=== PATIENT | female | born 1985 | race Caucasian/White ===

== ENCOUNTER → 2023-01-21 14:55 | Outpatient (CLI) | payer BC, SELFPAY ==
--- NOTE | 2023-01-21 14:59 | US_ITS ---
FINAL REPORT TECHNIQUE: Ultrasound images of the kidneys and bladder were obtained. CLINICAL HISTORY: HEMATURIA COMPARISON: None FINDINGS: The right kidney measures 11.9 cm in length. It is normal in echogenicity. There is no hydronephrosis. The left kidney has been surgically resected. IMPRESSION: Unremarkable right renal ultrasound. Left kidney has been surgically resected. Reviewed, Interpreted and Dictated by Ambar Maldonado MD Transcribed by Zoe Douglass Authenticated and . [facility]
== END ==
PROVIDERS: PCP Nurse Practitioner Family; Visit Provider Nurse Practitioner Family
DX: R31.9 Hematuria, unspecified (principal)
CPT/HCPCS: 76770

== ENCOUNTER 2023-04-09 22:31 | Emergency (ER) | payer BC, SELFPAY ==
[2023-04-09 22:32] VITALS: BP 127/93; PULSE 58; RESP 16; TEMP 36.7; O2SAT 98; BMI 25.1
[2023-04-09 22:45] VITALS: BP 127/93; PULSE 55; O2SAT 100
[2023-04-09 23:00] VITALS: BP 113/79; PULSE 52; O2SAT 97
--- NOTE | 2023-04-09 23:08 | CT_ITS ---
PROCEDURE INFORMATION: Exam: CT Head Without Contrast Exam date and time: 04/09/2023 11:23 PM Age: 38 years old Clinical indication: Pain; Headache; Additional info: Headache for 1 week TECHNIQUE: Imaging protocol: Computed tomography of the head without contrast. Radiation optimization: All CT scans at this facility use at least one of these dose optimization techniques: automated exposure control; mA and/or kV adjustment per patient size (includes targeted exams where dose is matched to clinical indication); or iterative reconstruction. REPORTING DATA: Count of CT and Cardiac NM exams in prior 12 months: This patient has received 0 known CTs and 0 known cardiac nuclear medicine studies in the 12 months prior to the current study. COMPARISON: No relevant prior studies available. FINDINGS: Brain: Normal. No hemorrhage. Unremarkable white matter. No mass effect. Cerebral ventricles: No ventriculomegaly. Paranasal sinuses: Visualized sinuses are unremarkable. No fluid levels. Mastoid air cells: Visualized mastoid air cells are well aerated. Bones/joints: Unremarkable. No acute fracture. Soft tissues: Unremarkable. IMPRESSION: No acute intracranial abnormality.
--- NOTE | 2023-04-09 23:10 | HMH.EDGENADL ---
Discharge Plan Disposition Chief Complaint: Headache Prescriptions Prescriptions: No Action No Known Home Medications Referrals Follow up/Referrals: Jasvir Rose APRN [Primary Care Provider] - See instructions Clinical Impressions Clinical Impression: Headache Instructions Patient Instructions: DI for Headache Discharge ED Provider: Mounika Buck General Adult HPI General Chief complaint: Headache Stated complaint: stiff neck, headache Time Seen by Provider: 04/09/23 23:00 Mode of Arrival: Ambulatory Source of Information: Patient Limitations: No Limitations Description of Symptoms (Recalled from ER Triage Doc. by RN): pt c/o ALEXANDRE and neck pain since wednesday. pt has been on antibodics recently for sinus History of Present Illness HPI narrative: Patient has a PMHx significant for kidney donation who presents to the ED with complaints of headache. Patient notes that 2 weeks ago and up until last , she was experiencing flulike symptoms of fatigue, body aches, malaise, headaches. Since Wednesday, patient notes that she has been having constant headache and neck stiffness that has not resolved despite taking Tylenol. Patient notes that she cannot take NSAIDs given only isolated kidney. Patient describes the headache as a frontal pressure sensation. Patient decided come into the ED after 5 days of symptoms. No fevers, chills, altered mental status, focal neurological deficit Related Data Home Medications Medication Instructions Recorded Confirmed No Known Home Medications 04/09/23 04/09/23 Allergies Allergy/AdvReac Type Severity Reaction Status Date / Time No Known Allergies [facility]ergy Verified 04/09/23 22:45 [facility] Disclaimer: The information contained in this section may have been updated after the patient was seen, as this information can be updated by other users. Social History Smoking Status: Never smoker alcohol intake: never current occupational status: employed Travel in the last 8 weeks: None ROS Obtained: Yes All systems reviewed & no additional complaints except as documented Physical Exam General General appearance: alert and in no apparent distress Head Head exam: atraumatic, normocephalic and normal inspection Eye Eye exam: Present normal appearance, PERRL and EOMI; Absent scleral icterus or nystagmus ENT ENT exam: Present normal exam, mucous membranes moist and normal external ear exam Neck Neck exam: Present normal inspection, full ROM and trachea midline Chest Chest inspection: Present normal inspection and symmetric chest wall rise; Absent tenderness Respiratory Respiratory exam: Present normal lung sounds bilaterally; Absent respiratory distress, wheezes or accessory muscle use Cardiovascular Cardiovascular exam: Present regular rate, normal rhythm and normal heart sounds Abdominal Exam Abdominal exam: Present soft; Absent distention, tenderness, guarding, rebound, rigidity, trauma, ascites or pulsatile mass Extremities Exam Extremities exam: Present normal inspection and full ROM; Absent tenderness Back Exam Back exam: Present normal inspection and full ROM; Absent tenderness Neurological Exam Neurological exam: Present alert, oriented X3 and normal gait; Absent motor sensory deficit Psychiatric Psychiatric exam: Present normal affect and normal mood Skin Skin exam: Present warm, dry and normal color Medical Decision Making Medical Records Medical records reviewed: Yes I reviewed the patient's medical records. Vitaly Inquiry Pt receiving controlled substance: No Vital Signs: 04/09/23 22:32 04/09/23 22:45 04/09/23 23:00 Temperature 98.0 F Temperature Source Oral Pulse Rate 55 L 52 L Pulse Rate [Right] 58 L Respiratory Rate 16 Blood Pressure 127/93 H 113/79 Blood Pressure [Right Arm] 127/93 H Blood Pressure Mean [Right Arm] 104 02 Sat by Pulse Oximetry 98 100 97 04/09/23 23:30 Temperature Temperature S
[2023-04-09 23:16] LABS: Basophils # 0.1 K/mm3 (0-0.2); Basophils % 0.9 % (0.1-2.0); Eosinophils # 0.1 K/mm3 (0.0-0.4); Eosinophils % 1.7 % (0.1-12.0); Hematocrit 42.7 % (37.0-47.0); Hemoglobin 14.1 g/dL (12.2-16.2); Lymphocytes # 3.5 K/mm3 (0.7-4.5); Lymphocytes % 51.3 % (10-50); Mean Corpuscular Hemoglobin 30.9 pg (27.0-31.2); Mean Corpuscular Volume 93.4 fl (81-99); Mean Platelet Volume 8.1 fl (7.4-10.4); Monocytes # 0.3 K/mm3 (0.1-1.0); Monocytes % 4.2 % (1.7-9.3); Neutrophils # 2.8 K/mm3 (1.8-7.8); Neutrophils % 41.8 % (37.0-80.0); Platelet Count 274 K/mm3 (142-424); Red Blood Count 4.57 M/mm3 (4.20-5.40); Red Cell Distribution Width 12.2 % (11.5-17.5); White Blood Count 6.7 K/mm3 (4.8-10.8)
[2023-04-09 23:18] LABS: MANUAL DIFFERENTIAL MANUAL DIFFERENTIAL (MANUAL DIFF)
[2023-04-09 23:20] LABS: Anion Gap 9.7 mEq/L (5-15); Blood Urea Nitrogen 8 mg/dl (7-17); Calcium 8.9 mg/dl (8.4-10.2); Carbon Dioxide 29 mmol/L (22.0-30.0); Chloride 102 mmol/L (98-107); Creatinine Clearance Estimated 92 mL/min (50-200); Estimated Glomerular Filt Rate 62 ml/min (>60); GFR (African American) 75 ML/MIN (>60); Glucose 87 mg/dl (74-100); Potassium 3.7 mmoL/L (3.5-5.1); Sodium 137 mmol/L (136-145)
--- NOTE | 2023-04-09 23:20 | PC.NURSE ---
patient gone to CT at this time.
[2023-04-09 23:30] VITALS: BP 127/77; PULSE 74; O2SAT 100
[2023-04-10 00:09] LABS: Eosinophils % 2 % (0-3); Lymphocytes % 51 % (10-50); Monocytes % 3 % (2-9); Neutrophils % 44 % (42-76); Platelet Estimate Normal; RBC Morphology Normal; Total Cells Counted 100
--- NOTE | 2023-04-10 00:11 | PC.NURSE ---
in room talking with patient at this time.
[2023-04-10 00:41] VITALS: BP 124/72; PULSE 74; RESP 16; TEMP 36.6; O2SAT 99
== END 2023-04-10 00:47 | disposition home or self-care (01) ==
PROVIDERS: Emergency Provider Emergency Medicine; PCP Nurse Practitioner Family
DX: R51.9 Headache, unspecified (principal); R53.83 Other fatigue
CPT/HCPCS: 70450; 80048; 85007; 85025; 96361; 96374; 96375; 99285

== ENCOUNTER 2023-04-22 09:16 | Emergency (ER) | payer BC, SELFPAY ==
--- NOTE | 2023-04-22 10:05 | EXP.UTC ---
Discharge Plan Disposition Patient Disposition: Home, Self-Care Condition: Good Prescriptions Prescriptions: New doxycycline monohydrate [doxycycline monohydrate] 100 mg tablet 100 mg PO Q12 10 Days Qty: 20 0RF methylprednisolone 4 mg Tablets,Dose Pack 4 mg PO DIRECTED Qty: 21 0RF [id number]-[id number]-KV [Bromfed DM] 2-30-10 mg/5 mL Syrup 5 ml PO Q6H PRN (Reason: Cough) Qty: 240 0RF fluconazole 150 mg tablet 150 mg PO ONCE Qty: 1 2RF No Action sertraline 100 mg tablet 200 mg PO DAILY Patient Comments: TAKE 2 TABLETS BY MOUTH DAILY pantoprazole 40 mg tablet,delayed release (DR/EC) 40 mg PO DAILY Patient Comments: TAKE 1 TABLET BY MOUTH DAILY Referrals Follow up/Referrals: Jasvir Rose APRN [Primary Care Provider] - See instructions Activity Restrictions/Add. Instructions Additional Instructions/Restrictions: Drink plenty of fluids. Take tylenol or ibuprofen for pain or fever. Take the medications as directed. Follow up with your regular doctor. GO TO THE ER FOR ANY WORSENING SYMPTOMS Clinical Impressions Clinical Impression: Acute viral syndrome, Bronchitis Instructions Patient Instructions: Acute Bronchitis, DI for Acute Bronchitis Discharge ED Provider: Austen Melissa [facility] General Stated complaint: cough,congestion,sore throat,fever Time Seen by Provider: 04/22/23 10:05 History of Present Illness Provider Complaint: She states that she was diagnosed with influenza B around 2 weeks ago. She states that she originally got better from that, but then her symptoms returned and she has continued to feel bad for the past 1 week. She is having congestion, malaise, low grade fever. Related Data Home Medications Medication Instructions Recorded Confirmed pantoprazole 40 mg tablet,delayed 40 mg PO DAILY 04/22/23 04/22/23 release sertraline 100 mg tablet 200 mg PO DAILY 04/22/23 04/22/23 Previous Rx's Medication Instructions Recorded mvfzqodxznrawlq-jolqvieowpgdsbw-DZ 5 ml PO Q6H PRN Cough #240 mL 04/22/23 2 mg-30 mg-10 mg/5 mL oral syrup (Bromfed DM) doxycycline monohydrate 100 mg 100 mg PO Q12 10 days #20 tabs 04/22/23 tablet fluconazole 150 mg tablet 150 mg PO ONCE #1 tab 12/21/23 methylprednisolone 4 mg tablets in 4 mg PO DIRECTED #21 tabs 04/22/23 a dose pack Allergies Allergy/AdvReac Type Severity Reaction Status Date / Time No Known Allergies Allergy Verified 04/09/23 22:45 [facility] Disclaimer: The information contained in this section may have been updated after the patient was seen, as this information can be updated by other users. Medical History (Updated 04/22/23 @ 11:14 by Austen Melissa APRN) Anxiety Depression History of gastroesophageal reflux (GERD) Hyperlipidemia Kidney donor Kidney stone Urinary tract infection Surgical History (Updated 04/22/23 @ 10:28 by Darling Prather RN) History of section History of hysterectomy History of tonsillectomy History of tubal ligation History of tympanostomy tube placement Social History (Updated 04/10/23 @ 00:37 by Mounika Buck MD) Smoking Status: Never smoker alcohol intake: never current occupational status: employed Travel in the last 8 weeks: None ROS Obtained: Yes All systems reviewed & no additional complaints except as documented Constitutional Constitutional: Reports chills and Reports fever(s) Eyes Eyes: Denies eye discharge ENT Ears, Nose, Mouth, and Throat: Reports as per HPI Cardiovascular Cardiovascular: Denies chest pain Respiratory Respiratory: Denies chest congestion and Reports cough Gastrointestinal Gastrointestingal: Reports nausea; Denies abdominal pain, constipation, cramping, diarrhea or vomiting Musculoskeletal Musculoskeletal: Denies arthralgias Integumentary/Breasts Skin/Breast: Denies rash Neurologic Neurologic: Denies paresthesias Physical Exam General General
[2023-04-22 10:10] VITALS: BP 122/76; PULSE 89; RESP 20; TEMP 37.3; O2SAT 96; BMI 24.5
[2023-04-22 10:23] LABS: UTC Influenza A Antigen Negative (Negative); UTC Strep Screen (Rapid) Negative (Negative)
[2023-04-22 10:24] LABS: UTC Influenza B Antigen Positive (Negative)
--- NOTE | 2023-04-22 10:30 | XR_ITS ---
FINAL REPORT TECHNIQUE: Chest PA & Lateral CLINICAL HISTORY: cough, congestion COMPARISON: None FINDINGS: 2 views of the chest were performed. The heart size is normal. The mediastinum is within normal limits. There is no acute cardiopulmonary process. There are no pleural effusions. There is no pneumothorax. The bony thorax appears intact. There is 12 degrees of thoracic scoliosis convex to the right. IMPRESSION: No acute cardiopulmonary process. Reviewed, Interpreted and Dictated by Jeremi Brown MD Transcribed by Maria Antonia Bello Authenticated and [facility]
[2023-04-22 10:53] VITALS: BP 122/76; PULSE 89; RESP 20; TEMP 37.3; O2SAT 96
[2023-04-22 11:27] LABS: Adenovirus,PCR Not Detected (NotDetected); Bordetella Pertussis Not Detected (NotDetected); Chlamydophila Pneumoniae, PCR Not Detected (NotDetected); Coronavirus 19, PCR Not Detected (NotDetected); Coronavirus 229E Not Detected (NotDetected); Coronavirus NL63 Not Detected (NotDetected); Coronavirus OC43 Not Detected (NotDetected); Coronovirus HKU1,PCR Not Detected (NotDetected); Human Metapneumovirus Not Detected (NotDetected); Influenza A, PCR Not Detected (NotDetected); Influenza AH1, 2009 Not Detected (NotDetected); Influenza AH1, PCR Not Detected (NotDetected); Influenza AH3,PCR Not Detected (NotDetected); Mycoplasma Pneumoniae, PCR Not Detected (NotDetected); Parainfluenza 1, PCR Not Detected (NotDetected); Parainfluenza 2, PCR Not Detected (NotDetected); Parainfluenza 3, PCR Not Detected (NotDetected); Parainfluenza 4, PCR Not Detected (NotDetected); Respiratory Syncytial Virus Not Detected (NotDetected); Rhinovirus/Enterovirus Not Detected (NotDetected)
[2023-04-22 12:55] LABS: Influenza B, PCR Detected (NotDetected)
== END 2023-04-22 11:24 | disposition home or self-care (01) ==
PROVIDERS: Emergency Provider Nurse Practitioner Family; PCP Nurse Practitioner Family
DX: J10.1 Influenza due to other identified influenza virus with other respiratory manifestations (principal); J20.8 Acute bronchitis due to other specified organisms; R07.0 Pain in throat; R50.9 Fever, unspecified; R05.9 Cough, unspecified; R09.81 Nasal congestion; R53.81 Other malaise; K21.9 Gastro-esophageal reflux disease without esophagitis; E78.5 Hyperlipidemia, unspecified
CPT/HCPCS: 71046; 87581; 87632; 87635; 87798; 87804; 87880; 99204; 99212; G0463

== ENCOUNTER 2023-05-07 15:47 | Outpatient (CLI) | payer BC, SELFPAY ==
--- NOTE | 2023-05-07 15:49 | MR_ITS ---
FINAL REPORT CLINICAL HISTORY: CRONIC MAXILLARY SINUSITIS COMPARISON: None FINDINGS: Multiplanar MR imaging of the face and sinuses was performed without contrast. There is no evidence of mucoperiosteal thickening. No fluid levels are noted. The globes and orbits appear intact. IMPRESSION: No acute findings. Reviewed, Interpreted and Dictated by Demarcus Valenzuela III, MD Transcribed by Maria Antonia Bello Authenticated and [facility]
== END 2023-05-07 23:59 ==
LOC: RAD 15:47
PROVIDERS: PCP Nurse Practitioner Family; Visit Provider Nurse Practitioner Family
DX: J32.0 Chronic maxillary sinusitis (principal)
CPT/HCPCS: 70540

== ENCOUNTER 2023-07-17 12:09 | Emergency (ER) | payer BC, SELFPAY ==
[2023-07-17 12:40] VITALS: BP 118/76; PULSE 68; RESP 19; TEMP 36.5; O2SAT 98; BMI 24.3
[2023-07-17 12:54] LABS: Apearance,Urine Clear (Clear); Bilirubin,Urine Negative (Negative); Blood, Urine Negative (Negative); Color,Urine Dark Yellow (Yellow); Glucose,Urine (UA) Negative (Negative); Ketones,Urine Negative (Negative); Protein,Urine Negative (Negative); UTC Leukocyte Esterase,Urine Negative (Negative); UTC Nitrate,Urine Negative (Negative); Urobilinogen,Urine 0.2 EU/dl (0.2)
[2023-07-17 12:55] LABS: UTC Strep Screen (Rapid) Negative (Negative)
--- NOTE | 2023-07-17 12:58 | ED_ITS ---
Discharge Plan Disposition Patient Disposition: Home, Self-Care Condition: Good Prescriptions Prescriptions: New prednisone 20 mg tablet 20 mg PO BID Qty: 10 0RF cefdinir 300 mg capsule 300 mg PO BID Qty: 20 0RF fluconazole [Diflucan] 100 mg tablet 100 mg PO DAILY Qty: 1 0RF No Action sertraline 100 mg tablet 200 mg PO DAILY Patient Comments: TAKE 2 TABLETS BY MOUTH DAILY pantoprazole 40 mg tablet,delayed release (DR/EC) 40 mg PO DAILY Patient Comments: TAKE 1 TABLET BY MOUTH DAILY Referrals Follow up/Referrals: Jasvir Rose APRN [Primary Care Provider] - See instructions Activity Restrictions/Add. Instructions Additional Instructions/Restrictions: Increase fluids, water and not soda or tea. Can drink cranberry juice or cranberry extract. Wipe front to back Wear cotton underwear Empty bladder after intercourse Start antibiotics immediately and make sure you take the full course although you may start to see improvement over the next 48 hours. You can eat yogurt or take probiotics to decrease diarrhea or yeast infection caused by the antibiotic Be sure to follow-up anytime for new or worsening symptoms in 48 hours for wound urine culture results be sure to let you PCP no recent urine for culture so they can request records and ensure that you have appropriate antibiotic if you are not getting better or getting worse. If symptoms worsen or do not improve return or be seen in the ER. Follow-up with primary care this week. Clinical Impressions Clinical Impression: UTI (urinary tract infection), Hoarseness of voice Instructions Patient Instructions: Urinary Tract Infection, DI for Viral Upper Respiratory Infection -- Adult Discharge ED Provider: Milton ([facility])Jasvir [facility] [place] HPI General Stated complaint: sore throat, cough Mode of Arrival: Ambulatory Source of Information: Patient Limitations: No Limitations Time Seen by Provider: 07/17/23 12:58 Description of Symptoms (Recalled from Triage Doc. by RN): PATIENT C/O SORE THROAT, RUNNY NOSE, STOMACH ACHE, HEADACHE, DIZZINESS, AND POSSIBLE UTI X 4 DAYS HEENT Symptoms (Recalled from RN notes): Yes Resp Symptoms (Recalled from RN notes): No Skin Symptoms (Recalled from RN notes): No MS Symptoms (Recalled from RN notes): No Functional Status (Recalled from RN notes): WNL History of Present Illness Provider Complaint: 38 YR OLD FEMALE PRESENTS FOR C/O SORE THROAT, RUNNY NOSE,HORSENESS, STOMACH ACHE, HEADACHE, DIZZINESS, AND POSSIBLE UTI, STRONG SMELLING URINE X 4 DAYS Related Data Home Medications Medication Instructions Recorded Confirmed pantoprazole 40 mg tablet,delayed 40 mg PO DAILY 04/22/23 07/17/23 release sertraline 100 mg tablet 200 mg PO DAILY 04/22/23 07/17/23 Previous Rx's Medication Instructions Recorded cefdinir 300 mg capsule 300 mg PO BID #20 caps 07/17/23 fluconazole 100 mg tablet 100 mg PO DAILY #1 tab 07/17/23 (Diflucan) prednisone 20 mg tablet 20 mg PO BID #10 tabs 07/17/23 Allergies Allergy/AdvReac Type Severity Reaction Status Date / Time No Known Allergies Allergy Verified 05/11/23 10:12 Worker's Comp Is this a Worker's Comp case?: No [facility] Disclaimer: The information contained in this section may have been updated after the patient was seen, as this information can be updated by other users. Medical History (Reviewed 07/17/23 @ 13:01 by Jasvir Rose ([facility]), [employer]) Kidney donor Depression Anxiety Urinary tract infection Kidney stone History of gastroesophageal reflux (GERD) Hyperlipidemia Surgical History (Reviewed 07/17/23 @ 13:01 by Jasvir Rose ([facility]), [employer]) History of tubal ligation History of tympanostomy tube placement History of tonsillectomy History of hysterectomy History of section Family History (Reviewed 07/17/23 @ 13:01 by Jasvir Rose ([facility]), [employer]) Family history non-contributory Social History (Reviewed 07/17/23 @ 13:01 by Jasvir Rose ([facility]), [employer]) Smoking Status: Never smoker alcohol intake: never current occupational status: employed Travel in the last 8 weeks: None ROS Obtained: Yes All systems reviewed & no additional complaints except as documented Constitutional Constitutional: Reports system reviewed and no additional complaints, except as documented and Reports as per HPI Eyes Eyes: Reports system reviewed and no additional complaints, except as documented and Reports as per HPI ENT Ears, Nose, Mouth, and Throat: Reports system reviewed and no additional complaints, except as documented, Reports as per HPI, Reports hoarseness, Reports post nasal drip, Reports sinus pain, Reports sinus pressure and Reports sore throat Cardiovascular Cardiovascular: Reports system reviewed and no additional complaints, except as documented Respiratory Respiratory: Reports system reviewed and no additional complaints, except as documented Genitourinary Female Genitourinary: Reports system reviewed and no additional complaints, except as documented, Reports as per HPI and Reports other Musculoskeletal Musculoskeletal: Reports system reviewed and no additional complaints, except as documented Integumentary/Breasts Skin/Breast: Reports system reviewed and no additional complaints, except as documented Neurologic Neurologic: Reports system reviewed and no additional complaints, except as documented Endocrine Endocrine: Reports system reviewed and no additional complaints, except as documented Hematologic/Lymphatic Henatologic/Lymphatic: Reports system reviewed and no additional complaints, except as documented Allergic/Immunologic Allergic/Immunologic: Reports system reviewed and no additional complaints, except as documented Physical Exam General General appearance: alert and in no apparent distress Head Head exam: atraumatic Eye Eye exam: Present normal appearance and PERRL ENT ENT exam: Present mucous membranes moist and TM's normal bilaterally Respiratory Respiratory exam: Present normal lung sounds bilaterally Cardiovascular Cardiovascular exam: Present regular rate and normal rhythm Neurological Exam Neurological exam: Present alert and oriented X3 Skin Skin exam: Present warm and intact Medical Decision Making Medical Records Medical records reviewed: Yes I reviewed the patient's medical records. Vitaly Inquiry Pt receiving controlled substance: No Vitaly was queried for this patient: No Vital Signs: 07/17/23 12:40 Temperature 97.7 F Temperature Source Oral Pulse Rate [Left Brachial] 68 Respiratory Rate 19 Blood Pressure [Left Arm] 118/76 Blood Pressure Mean [Left Arm] 90 Blood Pressure Source [Left Arm] Automatic Cuff Blood Pressure Position [Left Arm] Sitting 02 Sat by Pulse Oximetry 98 Oxygen Delivery Method Room Air Lab Data Lab results reviewed: Yes I reviewed the patient's lab results. Lab Results 07/17/23 12:36: Urine Color Dark yellow, Urine Appearance Clear, Urine pH 6.0, Ur Specific [place] 1.020, Urine Protein Negative, Urine Glucose (UA) Negative, Urine Ketones Negative, Urine Blood Negative, Urine Nitrate Negative, Urine Bilirubin Negative, Urine Urobilinogen 0.2, Ur Leukocyte Esterase Negative, Strep Scn Rapid Clinic Negative Orders (Tests/Meds): ORDERS Category Date Time Status Strep Screen Confirmation Stat Micro 07/17/23 12:36 Received
[2023-07-17 13:11] VITALS: BP 118/76; PULSE 68; RESP 19; TEMP 36.5; O2SAT 98
== END 2023-07-17 13:15 | disposition home or self-care (01) ==
PROVIDERS: Emergency Provider Nurse Practitioner Family; PCP Nurse Practitioner Family
DX: N39.0 Urinary tract infection, site not specified (principal); J02.9 Acute pharyngitis, unspecified; R05.9 Cough, unspecified; R10.84 Generalized abdominal pain; R51.9 Headache, unspecified; R42 Dizziness and giddiness; F32.A Depression, unspecified; F41.9 Anxiety disorder, unspecified; E78.5 Hyperlipidemia, unspecified
CPT/HCPCS: 81003; 87086; 87880; 99212; 99214; G0463

== ENCOUNTER 2024-05-31 14:39 | Outpatient (CLI) | payer BC, SELFPAY ==
--- NOTE | 2024-05-31 14:40 | US_ITS ---
PROCEDURE: US TRANSVAGINAL CLINICAL INDICATION: pelvic pain COMPARISON: No exams were available for comparison FINDINGS: Transvaginal sonographic images of the pelvis were obtained. UTERUS: Surgically absent The vaginal vault is intact. There is an area at the vaginal vault that measures 2.2 cm x 1.9 cm. Within this small structure is a small cyst measuring 0.6 cm x 0.4 cm. This could represent a small nabothian cyst. This structure at the top of the vaginal vault could represent residual cervix. LEFT OVARY: 2.5cmx1.4cmx1.4cm with a volume of 2.5ml. RIGHT OVARY: 3.9 cmx 2.3cmx1.5 cm with a volume of 7.1ml. There appears to be a corpus luteum within the right ovary measuring 2.3 cm x 1.1 cm x 1.6 cm There are several small peripheral follicles. Both ovaries are seen and appear normal. Doppler flow to both ovaries are seen. There is no fluid in the cul-de-sac. IMPRESSION: 1. The uterus is surgically absent. The vaginal vault is intact. 2. The top of the vagina is small area measuring 2.2 cm x 1.9 cm. Within this tissue is a 0.6 cm cyst that could be a nabothian cyst. There could be residual cervix at the top of the vagina. 3. Both ovaries are seen and appear normal. There is a corpus luteum in the right ovary. 4. No fluid in the cul-de-sac. Dictated by: Willis Young MD 06/01/2024 11:49 Willis Young MD in [place] 06/01/2024 11:49
--- NOTE | 2024-05-31 14:40 | MM_ITS ---
PROCEDURE INFORMATION: Exam: Bilateral Diagnostic Breast Tomosynthesis Exam date and time: 05/31/2024 2:43 PM Age: 39 years old Clinical indication: Bilateral breast pain TECHNIQUE: Imaging protocol: Bilateral Diagnostic tomosynthesis and 2D mammography including computer-aided detection (CAD) when performed. Unilateral or bilateral exam. COMPARISON: No relevant prior studies available. FINDINGS: MAMMOGRAPHY: Breast composition: The breasts are heterogeneously dense, which may obscure small masses. Breast mammogram findings: No stellate mass, architectural distortion, or suspicious microcalcifications to suggest malignancy. No skin thickening or axillary adenopathy. IMPRESSION: No mammographic evidence of malignancy. If there are any focal areas of breast pain, ultrasound evaluation would be recommended. ASSESSMENT: BI-RADS Category 1: Negative.
[2024-06-01 08:14] LABS: FSH 4.3 mIU/mL (.); LH 7.5 mIU/mL (.); Progesterone 9.5 ng/mL (.)
== END 2024-05-31 23:59 | disposition home or self-care (01) ==
LOC: RAD 14:40
PROVIDERS: PCP Nurse Practitioner Family; Visit Provider Obstetrics & Gynecology
DX: R10.2 Pelvic and perineal pain (principal); N64.4 Mastodynia; R53.83 Other fatigue
CPT/HCPCS: 36415; 76830; 77062; 77066; 82670; 83001; 83002; 84144; G0279

== ENCOUNTER 2024-05-31 15:15 | Outpatient (CLI) | payer BC, SELFPAY | END 2024-05-31 23:59 | disposition home or self-care (01) | LOC: LAB 15:16 | PROVIDERS: PCP Nurse Practitioner Family; Visit Provider Obstetrics & Gynecology | DX: Z02.9 Encounter for administrative examinations, unspecified (principal) ==